=== PATIENT | female | born 2005 | race Two or more races ===

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

== ENCOUNTER 2025-03-24 02:03 | Emergency (ER) | payer MEDICAID, OTHER ==
[~2025-03-24] VITALS: Ht 152.4 cm; Wt 50.8 kg
--- NOTE | 2025-03-24 02:30 | ED.PDOC ---
History of Present Illness HPI Comments 19 y/o F presents with boyfriend for c/c of dysuria and nonradiating suprapubic pain, which began, last night. Chief Complaint: Urinary Time Seen by MD: 02:20 Reviewed Notes: Nurses Notes, Medications, Allergies Allergies: Coded Allergies: NO KNOWN ALLERGIES (Unverified , 08/11/24) Home Meds Active Scripts Sulfamethoxazole W/Trimethopri (Bactrim Ds Tablet) 1 Tab Tb, 1 TAB PO BID for 10 Days, #20 TAB Prov:DEYSI PONCE MD 03/24/25 Information Source: Patient Mode of Arrival: Ambulatory Severity: Moderate Timing: Hours Duration: Since onset Prehospital treatment: None Past Medical History PAST MEDICAL HISTORY: Denies Surgical History: Denies all surgeries CIVIL PROJECT ENGINEER History: No Pertinent CIVIL PROJECT ENGINEER History Family History Family History: Unknown Social History Smoker: Non-Smoker Alcohol: Denies ETOH Use Drugs: Denies Drug Use Lives In: Home All Other Systems: Reviewed and Negative (As per HPI) Physical Exam General Appearance: No Apparent Distress, Normal HEENT: Normal ENT Inspection, Pharynx Normal, TMs Normal Neck: Full Range of Motion, Non-Tender, Normal, Normal Inspection Respiratory: Chest Non-Tender, Lungs Clear, No Accessory Muscle Use, No Respiratory Distress, Normal Breath Sounds Cardiovascular: No Edema, No JVD, No Murmur, No Gallop, Normal Peripheral Pulses, Regular Rate/Rhythm Breast Exam: Deferred Gastrointestinal: No Organomegaly, Non Tender, No Pulsatile Mass, Normal Bowel Sounds, Soft Genitalia: Deferred Pelvic: Deferred Rectal: Deferred Extremities: No calf tenderness, Normal capillary refill, Normal inspection, Normal range of motion, Non-tender, No pedal edema Musculoskeletal : Apperance: Normal Neurologic: Alert, bonding machine operator II-XII nml as Tested, No Motor Deficits, Normal Affect, Normal Mood, No Sensory Deficits Cerebellar Function: Normal Reflexes: Normal Skin: Dry, Normal Color, Warm Lymphatic: No Adenopathy Was a procedure done? Was a procedure done?: No Differential Dx Considerations may include: UTI, vaginitis, STD, among others X-Ray, Labs, Meds, VS Vital Signs Date Time Temp Pulse Resp B/P (MAP) Pulse Ox O2 Delivery O2 Flow Rate FiO2 03/24/25 05:21 18 100 Room Air* 0 21 03/24/25 05:10 98.1 75 20 120/68 (85) 100 98.1 03/24/25 04:16 98.1 73 18 113/71 (85) 98 98.1 03/24/25 02:13 98.2 129 18 133/90 98 98.2 Lab Test 03/24/25 03:00 Range/Units Urine Color Colorless Yellow Urine Clarity Turbid H Clear Urine pH 6.5 5.0-9.0 Urine Specific [place] 1.002 1.001-1.035 Urine Protein Negative Negative Urine Ketones Negative Negative Urine Blood 3+ H Negative /uL Urine Nitrite Negative Negative Urine Bilirubin Negative Negative Urine Urobilinogen Normal Negative mg/dL Urine Leukocyte Esterase 3+ Negative /uL Urine RBC None seen 0 - 4 /hpf Urine Microscopic WBC 29 H 0-5 /HPF Urine Squamous Epithelial Cells Few <5 /hpf Urine Bacteria Few H None Seen /hpf Urine Glucose Normal Normal mg/dL Urine Test Negative Negative Current Medications Medications (Trade) Dose Ordered Sig/Kylah Route Start Time Stop Time Status Last Admin Trimethoprim/ Sulfamethoxazole (Bactrim Ds Tablet) 1 tab ONCE ONCE PO 03/24/25 04:15 03/24/25 04:16 DC 03/24/25 04:50 Phenazopyridine HCl (Pyridium Tablet) 200 mg ONCE ONCE PO 03/24/25 04:15 03/24/25 04:16 DC 03/24/25 04:49 Ibuprofen (Motrin Tablet) 600 mg ONCE ONCE PO 03/24/25 04:15 03/24/25 04:16 DC 03/24/25 04:49 Time of 1ST Reevaluation: 02:50 Reevaluation 1ST: Unchanged Patient Education/Counseling: Diagnosis, Treatment, Need For Follow Up Family Education/Counseling: Diagnosis, Treatment, Need For Follow Up SEPSIS Sepsis Screen Date sepsis recognized/suspect: Mar 24, 2025 Time Sepsis recognized/suspect: 214 Recent Procedure: No On Antibiotic Therapy: No Respiratory Rate >20: No Heart Rate >90: No Temp<36 C (96.8 F) or >38.3 C: No SBP <90 or MAP <65 mmHG: No New Acute Mental Status Change: No Is the patient on CPAP, BIPAP,: No Vital Signs Date Time Temp Pulse Resp B/P (MAP) Pulse Ox O2 Delivery O2 Flow Rate FiO2 03/24/25 05:21 18 100 Room Air* 0 21 03/24/25 05:10 98.1 75 20 120/68 (85) 100 98.1 03/24/25 04:16 98.1 73 18 113/71 (85) 98 98.1 03/24/25 02:13 98.2 129 18 133/90 98 98.2 Medications Medications Dose Ordered Sig/Kylah Route Start Time Stop Time Status Last Admin Dose Admin Ibuprofen 600 mg ONCE ONCE PO 03/24/25 04:15 03/24/25 04:16 DC 03/24/25 04:49 Phenazopyridine HCl 200 mg ONCE ONCE PO 03/24/25 04:15 03/24/25 04:16 DC 03/24/25 04:49 Trimethoprim/ Sulfamethoxazole 1 tab ONCE ONCE PO 03/24/25 04:15 03/24/25 04:16 DC 03/24/25 04:50 Departure 1 Departure Time of Disposition: 04:30 Impression: Primary Impression: UTI (urinary tract infection) Disposition: 01 HOME / SELF CARE / HOMELESS Condition: Stable e-Prescriptions Sulfamethoxazole W/Trimethopri (Bactrim Ds Tablet) 1 Tab Tb 1 TAB PO BID for 10 Days, #20 TAB Prov: DEYSI PONCE MD 03/24/25 Discharged With: Significant Other Critical Care Note Critical Care Time?: No Stability Stability form required: No Heart Score Heart Score: Heart Score Response (Comments) Value History N/A 0 EKG N/A 0 Age N/A 0 Risk Factors N/A 0 Troponin N/A 0 Total 0 I personally scribed for DEYSI PONCE MD ([email or web address]) on 03/24/25 at 02:30. Electronically submitted by Rikki Dodd ([email or web address]). DEYSI PONCE MD Mar 24, 2025 02:30
[2025-03-24 04:01] LABS: Urine Protein, UAD Negative (Negative)
[2025-03-24] MEDS ORDERED: BACDST PO (04:07)
[2025-03-24] MEDS: IBUPROFEN 600 MG TAB PO ONE (04:49)
[2025-03-24] MEDS: PHENAZOPYRIDINE HCL 100 MG TAB PO ONE (04:49)
[2025-03-24] MEDS: SULFAMETHOX W/TRIMETH(800/160MG) DS TAB PO ONE (04:50)
[2025-03-24 05:10] VITALS: BP 120/68; PULSE 75; TEMP 98.1
[2025-03-24 05:21] VITALS: RESP 18; O2SAT 100
== END 2025-03-24 05:25 | disposition home or self-care (01) ==
LOC: ER 02:03
DX: N39.0 Urinary tract infection, site not specified (principal); Z79.899 Other long term (current) drug therapy
CPT/HCPCS: 81001; 81025